=== PATIENT | female | born 1965 | race Two or more races ===

== ENCOUNTER 2023-10-02 13:24 | Inpatient (IN) | payer MEDICAID ==
[~2023-10-02] VITALS: Ht 157.5 cm; Wt 81.5 kg
[2023-10-02 14:58] LABS: Urine Bacteria None Seen /hpf (None Seen)
[2023-10-02 15:18] LABS: Basophils # (auto) 0.1 10 ^3/uL (0-0.2); Eosinophils # (auto) 0.1 10 ^3/uL (0-0.8); Hemoglobin 13.6 g/dL (12.2-16.2); Mean Corpuscular Volume 91.7 fL (80.0-100.0); Monocytes # (auto) 1.4 10 ^3/uL (0-1.3); Nucleated Red Blood Cells % 0.1 %; Red Blood Cells 4.54 10^6/uL (4.0-5.20)
[2023-10-02 15:24] LABS: Basophils % (auto) 0.7 % (0.0-2.0); Eosinophils % (auto) 0.4 % (0.0-7.0); Hematocrit 41.7 % (36.0-46.0); Lymphocytes % (auto) 7.1 % (10.0-50.0); Mean Corpuscular Hgb Conc. 32.8 g/dL (32.0-36.0); Monocytes % (auto) 9.6 % (0.0-12.0); Neutrophils # (auto) 11.7 10 ^3/uL (1.6-8.6); Neutrophils % (auto) 82.2 % (37.0-80.0); Red Cell Distribution Width 14.9 % (11.8-14.3); White Blood Cell 14.2 10^3/uL (4.4-10.8)
[2023-10-02 15:25] LABS: Urine Blood Negative /uL (Negative); Urine Clarity Clear (Clear); Urine Color Light-Yellow (Yellow); Urine Protein, UAD Negative (Negative); Urine Specific Gravity 1.022 (1.001-1.035); Urine Urobilinogen Normal (Negative); Urine WBC 89 /hpf (0 - 5); Urine pH 7.5 (5.0-9.0)
[2023-10-02 15:34] LABS: Chloride 101 mmol/L (98-107); Potassium 3.5 mmol/L (3.5-5.1); Sodium 137 mmol/L (136-145)
[2023-10-02 15:35] LABS: Anion Gap 10 (5-15); Calcium 9.8 mg/dL (8.5-10.1); Carbon Dioxide 26 mmol/L (20-30)
[2023-10-02 15:40] LABS: BUN/Creatinine Ratio 10.9 (10.0-20.0); Blood Urea Nitrogen 13 mg/dL (9-23); Glucose 187 mg/dL (74-106)
[2023-10-02] MEDS: SODIUM CHLORIDE 0.9% 1,000 ML IV ONE ×2 (18:41)
[2023-10-02 18:46] VITALS: PULSE 110; RESP 17; O2SAT 95
[2023-10-02] MEDS: PIPERACILLIN-TAZOB 3.375GM 100 ML IV ONE (18:46)
[2023-10-02] MEDS ORDERED: DEXTROSE (50%) 50ML SYRG IV PRN (22:45)
[2023-10-02] MEDS ORDERED: DOCUSATE SOD 100 MG CAP PO PRN (22:45)
[2023-10-02] MEDS ORDERED: ONDANSETRON HCL 4 MG/2 ML VIAL IV PRN (22:45)
[2023-10-02] MEDS ORDERED: MORPHINE SULFATE INJ 2 MG/ml SYRG IV PRN (22:45)
[2023-10-02] MEDS: SODIUM CHLORIDE 0.9% 1,000 ML IV SCH (22:48)
[2023-10-03] MEDS ORDERED: MORPHINE SULFATE INJ 2 MG/ml SYRG IV PRN
[2023-10-03] MEDS ORDERED: NITROGLYCERIN 0.4 MG SL TAB SL PRN
[2023-10-03] MEDS: ACCU-CHEK COMFORT CURVE STRIP VI SCH (05:51)
[2023-10-03 06:07] LABS: Basophils # (auto) 0.1 10 ^3/uL (0-0.2); Basophils % (auto) 0.9 % (0.0-2.0); Eosinophils # (auto) 0.1 10 ^3/uL (0-0.8); Eosinophils % (auto) 0.7 % (0.0-7.0); Hematocrit 37.6 % (36.0-46.0); Hemoglobin 12.4 g/dL (12.2-16.2); Lymphocytes % (auto) 8.7 % (10.0-50.0); Mean Corpuscular Hemoglobin 30.3 pg (28.0-32.0); Mean Corpuscular Hgb Conc. 32.9 g/dL (32.0-36.0); Mean Corpuscular Volume 92.3 fL (80.0-100.0); Monocytes # (auto) 1.3 10 ^3/uL (0-1.3); Monocytes % (auto) 10.8 % (0.0-12.0); Neutrophils # (auto) 9.3 10 ^3/uL (1.6-8.6); Neutrophils % (auto) 78.9 % (37.0-80.0); Nucleated Red Blood Cells % 0.1 %; Red Blood Cells 4.08 10^6/uL (4.0-5.20); Red Cell Distribution Width 14.6 % (11.8-14.3); White Blood Cell 11.8 10^3/uL (4.4-10.8)
[2023-10-03] MEDS ORDERED: HYDROmorphone HCL 2 MG/ML VL/or syr IV PRN (06:15)
[2023-10-03 06:28] LABS: Alanine Aminotransferase 32 U/L (7-40); Alkaline Phosphatase 67 U/L (46-116); Anion Gap 11 (5-15); BUN/Creatinine Ratio 12.6 (10.0-20.0); Blood Urea Nitrogen 15 mg/dL (9-23); Calcium 9.4 mg/dL (8.5-10.1); Carbon Dioxide 25 mmol/L (20-30); Chloride 102 mmol/L (98-107); Glucose 153 mg/dL (74-106); Potassium 3.6 mmol/L (3.5-5.1); Sodium 138 mmol/L (136-145)
[2023-10-03 06:29] LABS: Albumin 4.2 g/dL (3.2-4.8); Aspartate Aminotransferase 22 U/L (13-40); Bilirubin, Total 0.4 mg/dL (0.2-1.0); Total Protein 6.8 g/dL (5.7-8.2)
[2023-10-03] MEDS: InsuLIN REG 1unit/0.01ml Soln (100units/ml) SC SCH ×2 (07:00→22:48)
[2023-10-03 08:59] VITALS: PULSE 104; RESP 18; O2SAT 98
[2023-10-03] MEDS: cefTRIAXone 1GM/50ML D5W 50 ML IV SCH (09:06)
[2023-10-03] MEDS: ACETAMINOPHEN 325 MG TAB PO PRN (09:06)
[2023-10-04] MEDS ORDERED: DICL75TA3 PO (00:10)
[2023-10-04] MEDS ORDERED: HYDR12.59 PO (00:11)
[2023-10-04] MEDS ORDERED: LOSA-534 PO (00:12)
[2023-10-04] MEDS ORDERED: GABA-1250 PO (00:13)
[2023-10-04] MEDS ORDERED: PIO30T GT (00:13)
[2023-10-04] MEDS ORDERED: EMPA1TAB3 PO (00:14)
[2023-10-04] MEDS ORDERED: ATOR40TA52 PO (00:14)
[2023-10-04] MEDS ORDERED: OMEP20TA PO (00:15)
[2023-10-04] MEDS ORDERED: LEVEMIR SC (00:16)
[2023-10-04] MEDS ORDERED: METF-371 PO (00:17)
[2023-10-04 05:00] VITALS: BP 118/63; PULSE 83; RESP 18; TEMP 98.1; O2SAT 94
[2023-10-04 09:00] VITALS: BP 130/69; PULSE 86; RESP 16; TEMP 98.8; O2SAT 90
[2023-10-04] MEDS ORDERED: MET500T PO (10:39)
[2023-10-04 11:09] LABS: Basophils # (auto) 0.1 10 ^3/uL (0-0.2); Basophils % (auto) 0.7 % (0.0-2.0); Eosinophils # (auto) 0.1 10 ^3/uL (0-0.8); Eosinophils % (auto) 1.7 % (0.0-7.0); Hematocrit 36.1 % (36.0-46.0); Hemoglobin 11.7 g/dL (12.2-16.2); Lymphocytes # (auto) 0.9 10 ^3/uL (0.4-5.4); Lymphocytes % (auto) 11.2 % (10.0-50.0); Mean Corpuscular Hemoglobin 30.1 pg (28.0-32.0); Mean Corpuscular Hgb Conc. 32.6 g/dL (32.0-36.0); Mean Corpuscular Volume 92.5 fL (80.0-100.0); Monocytes # (auto) 0.9 10 ^3/uL (0-1.3); Monocytes % (auto) 10.8 % (0.0-12.0); Neutrophils % (auto) 75.6 % (37.0-80.0); Nucleated Red Blood Cells % 0.1 %; Red Cell Distribution Width 14.8 % (11.8-14.3)
[2023-10-04 11:18] LABS: Chloride 105 mmol/L (98-107); Potassium 3.3 mmol/L (3.5-5.1); Sodium 139 mmol/L (136-145)
[2023-10-04 11:19] LABS: Anion Gap 9 (5-15); Calcium 9.2 mg/dL (8.5-10.1); Carbon Dioxide 25 mmol/L (20-30)
[2023-10-04 11:24] LABS: BUN/Creatinine Ratio 10.1 (10.0-20.0); Blood Urea Nitrogen 10 mg/dL (9-23); Glucose 159 mg/dL (74-106)
[2023-10-04 13:00] VITALS: BP 111/62; PULSE 92; RESP 18; TEMP 98.7; O2SAT 94
[2023-10-04] MEDS: metroNIDAZOLE 500MG/100ML 100 ML IV SCH (14:05)
[2023-10-04 17:00] VITALS: BP 93/61; PULSE 93; RESP 19; TEMP 99.2; O2SAT 98
[2023-10-04 21:25] VITALS: BP 104/62; PULSE 98; RESP 18; TEMP 98.1; O2SAT 95
[2023-10-05 01:15] VITALS: BP 129/68; PULSE 86; RESP 18; TEMP 98.3; O2SAT 95
[2023-10-05 05:35] VITALS: BP 120/67; PULSE 91; RESP 18; TEMP 98.6; O2SAT 93
[2023-10-05 09:47] VITALS: BP 131/72; PULSE 84; RESP 18; TEMP 98.4; O2SAT 94
[2023-10-05 13:25] VITALS: BP 126/75; PULSE 87; RESP 19; TEMP 98; O2SAT 96
[2023-10-05] MEDS: POTASSIUM CHLORIDE 20 MEQ, LIDOCAINE 1% (LOCAL ANESTH.) 2 ML in SODIUM CHL 0.9% 100 ML IV ONE (13:58)
[2023-10-05 17:00] VITALS: BP 128/84; PULSE 86; RESP 18; TEMP 98.3; O2SAT 99
[2023-10-05 22:00] VITALS: BP 109/56; PULSE 77; RESP 17; TEMP 98.2; O2SAT 95
[2023-10-06] VITALS (7 sets, daily range): BP systolic 110–137; BP diastolic 64–74; PULSE 79–89; RESP 16–19; TEMP 97.3–98.3; O2SAT 94–100
[2023-10-06 06:00] LABS: Basophils # (auto) 0 10 ^3/uL (0-0.2); Basophils % (auto) 0.5 % (0.0-2.0); Eosinophils # (auto) 0.1 10 ^3/uL (0-0.8); Eosinophils % (auto) 1.8 % (0.0-7.0); Hematocrit 36.8 % (36.0-46.0); Hemoglobin 12.2 g/dL (12.2-16.2); Lymphocytes # (auto) 1.1 10 ^3/uL (0.4-5.4); Lymphocytes % (auto) 15.3 % (10.0-50.0); Mean Corpuscular Hemoglobin 30.4 pg (28.0-32.0); Mean Corpuscular Hgb Conc. 33.1 g/dL (32.0-36.0); Mean Corpuscular Volume 91.8 fL (80.0-100.0); Monocytes # (auto) 0.6 10 ^3/uL (0-1.3); Monocytes % (auto) 9.1 % (0.0-12.0); Neutrophils % (auto) 73.3 % (37.0-80.0); Nucleated Red Blood Cells % 0.2 %; Red Blood Cells 4.01 10^6/uL (4.0-5.20); Red Cell Distribution Width 14.4 % (11.8-14.3); White Blood Cell 6.8 10^3/uL (4.4-10.8)
[2023-10-06 06:17] LABS: Alanine Aminotransferase 26 U/L (7-40); Albumin 3.7 g/dL (3.2-4.8); Alkaline Phosphatase 50 U/L (46-116); Anion Gap 11 (5-15); Aspartate Aminotransferase 21 U/L (13-40); BUN/Creatinine Ratio 14.6 (10.0-20.0); Blood Urea Nitrogen 13 mg/dL (9-23); Calcium 9.4 mg/dL (8.5-10.1); Carbon Dioxide 24 mmol/L (20-30); Chloride 107 mmol/L (98-107); Glucose 137 mg/dL (74-106); LDL Cholesterol 64 mg/dL (< 100); Potassium 3.6 mmol/L (3.5-5.1); Sodium 142 mmol/L (136-145); Triglycerides 123 mg/dL (< 150)
[2023-10-06 06:18] LABS: Bilirubin, Total 0.3 mg/dL (0.2-1.0); Cholesterol 121 mg/dL (< 200); HDL Cholesterol 30 mg/dL (40-59); Phosphorus 4.5 mg/dL (2.4-5.1); Total Protein 6.4 g/dL (5.7-8.2)
[2023-10-06 06:33] LABS: Magnesium 1.8 mg/dL (1.6-2.6)
[2023-10-06 07:46] LABS: INR 1.09 (0.9-1.15); Partial Thromboplastin Time 27.1 SEC (24.5-34.5); Prothrombin Time 11.4 sec (9.3-11.8)
[2023-10-07] VITALS (7 sets, daily range): BP systolic 116–130; BP diastolic 49–69; PULSE 73–84; RESP 16–19; TEMP 36.3; O2SAT 92–100
[2023-10-07 07:31] LABS: Basophils # (auto) 0.1 10 ^3/uL (0-0.2); Basophils % (auto) 0.8 % (0.0-2.0); Eosinophils # (auto) 0.1 10 ^3/uL (0-0.8); Eosinophils % (auto) 1.9 % (0.0-7.0); Hematocrit 37.2 % (36.0-46.0); Hemoglobin 12.2 g/dL (12.2-16.2); Lymphocytes # (auto) 1.2 10 ^3/uL (0.4-5.4); Lymphocytes % (auto) 17.1 % (10.0-50.0); Mean Corpuscular Hemoglobin 29.7 pg (28.0-32.0); Mean Corpuscular Hgb Conc. 32.7 g/dL (32.0-36.0); Mean Corpuscular Volume 90.9 fL (80.0-100.0); Monocytes # (auto) 0.6 10 ^3/uL (0-1.3); Monocytes % (auto) 8.5 % (0.0-12.0); Neutrophils # (auto) 4.9 10 ^3/uL (1.6-8.6); Neutrophils % (auto) 71.7 % (37.0-80.0); Nucleated Red Blood Cells % 0.2 %; Red Blood Cells 4.09 10^6/uL (4.0-5.20); Red Cell Distribution Width 14.5 % (11.8-14.3); White Blood Cell 6.8 10^3/uL (4.4-10.8)
[2023-10-07] MEDS ORDERED: CIPR250T26 PO (07:34)
[2023-10-07 07:54] LABS: Alanine Aminotransferase 28 U/L (7-40); Albumin 3.5 g/dL (3.2-4.8); Alkaline Phosphatase 47 U/L (46-116); Anion Gap 6 (5-15); Aspartate Aminotransferase 29 U/L (13-40); BUN/Creatinine Ratio 18.8 (10.0-20.0); Bilirubin, Total 0.3 mg/dL (0.2-1.0); Blood Urea Nitrogen 15 mg/dL (9-23); Calcium 8.9 mg/dL (8.5-10.1); Carbon Dioxide 26 mmol/L (20-30); Chloride 111 mmol/L (98-107); Glucose 135 mg/dL (74-106); Potassium 3.5 mmol/L (3.5-5.1); Sodium 143 mmol/L (136-145)
[2023-10-07 08:06] LABS: Free Thyroxine Index 2.9 (1.2-4.9); Thyroxine (T4) 9.3 ug/dL (4.5-12.0)
== END 2023-10-07 15:35 | disposition home or self-care (01) | DRG 720 ==
LOC: ER 13:24 → OVERFLOW 23:57 → CENTRAL 10-03 23:32
PROVIDERS: ADMIT Internal Medicine; ATTEND Internal Medicine
DX: A41.51 Sepsis due to Escherichia coli [E. coli] (principal); N17.0 Acute kidney failure with tubular necrosis; E11.65 Type 2 diabetes mellitus with hyperglycemia; I10 Essential (primary) hypertension; N39.0 Urinary tract infection, site not specified; Z88.5 Allergy status to narcotic agent
CPT/HCPCS: 36415; 74176; 76775; 80048; 80053; 80061; 81001; 82306; 82607; 82962; 83036; 83605; 83735; 84100; 84443; 85025; 85610; 85730; 86141; 87040; 87077; 87086; 87088; 87186; 96365; G0378; J1815; J2001; J2543; J3490